=== PATIENT | male | born 1975 | race Caucasian/White ===

== ENCOUNTER 2021-11-16 04:09 | Inpatient (IN) | payer SELFPAY ==
[2021-11-16 04:22] VITALS: BP 130/67; PULSE 83; RESP 18; TEMP 36.6; O2SAT 99
[2021-11-16 04:25] VITALS: BMI 22.6
[2021-11-16 05:52] VITALS: BP 130/67; PULSE 83; RESP 18; TEMP 36.6
[2021-11-16 06:18] LABS: Basophils # 0.1 10^3/uL (0.0-0.1); Basophils % 0.7 %; Eosinophils # 0.1 10^3/uL (0.0-0.8); Eosinophils % 1.4 %; Hematocrit 39.6 % (42.0-52.0); Lymphocytes # 1.6 10^3/uL (0.8-4.8); Lymphocytes % 22.6 %; Mean Corpuscular HGB Conc 32.8 g/dL (30.0-36.0); Mean Corpuscular Hemoglobin 31.9 pg (28.0-34.0); Mean Corpuscular Volume 97.3 fl (80-94); Mean Platelet Volume 9.5 fL (7.4-10.4); Monocytes # 1.2 10^3/uL (0.2-0.9); Monocytes % 16.6 %; Neutrophils # 4.09 10^3/uL (1.8-7.7); Neutrophils % 58.3 %; Nucleated Red Blood Cells % 0 %; Platelet Count 296 10^3/cmm (130-400); Red Blood Count 4.07 10^6/uL (4.1-5.3); Red Cell Distribution Width 13.2 % (12.1-15.1)
[2021-11-16 06:29] LABS: Alanine Aminotransferase 40 U/L (0-41); Albumin Level 3.5 g/dL (3.5-5.2); Alkaline Phosphatase 72 IU/L (40-130); Anion Gap 13.3 (5-19); Aspartate Amino Transferase 59 U/L (0-40); Blood Urea Nitrogen 9 mg/dL (6-20); Carbon Dioxide 27 mmol/L (22-29); Chloride 106 mmol/L (98-107); Creatinine Clr Calc Pharmacy 132.9437; Globulin 1.7 g/dL (1.3-4.6); Glomerular Filtration Rate 120.4 mL/min (90-130); Glucose 106 mg/dL (65-115); Osmolality Calculated 295 mOsm/kg (285-295); Potassium 3.3 mmol/L (3.5-5.1); Sodium 143 mmol/L (136-145); Total Bilirubin 0.5 mg/dL (0.15-1.2); Total Protein 5.2 g/dL (6.6-8.7)
[2021-11-16] MEDS: thiamine 100 mg Tablet PO (08:38)
[2021-11-16] MEDS: multivitamin therapeutic Tablet 1 TAB PO (08:38)
[2021-11-16] MEDS: folic acid 1 mg Tablet PO (08:38)
[2021-11-16] MEDS: benztropine 1 mg Tablet PO (08:38)
[2021-11-16] MEDS: neomycin-poly-bacitracin oint 28 gm 1 APPLIC TOPICAL ×2 (08:40→20:22)
[2021-11-16] MEDS: potassium chloride ER 20 mEq Tablet 40 MEQ PO (08:40)
[2021-11-16] MEDS: cephALEXin 500 mg Capsule PO ×3 (08:40→20:23)
--- NOTE | 2021-11-16 10:44 | W.PM.NPUH&PS ---
Providers/Chief Complaint Admitting Physician: Kaushik Bellamy MD Chief Complaint: hyponatremia, Hypo kalemis, Sepsis with multi orga HPI NPU History of Present Illness Justus Maria is a 46 year old male who was admitted through the emergency department from [facility] with the following report: 46-year-old white male who was seen here in the emergency department on the evening of October 14. I was the treating ER physician for this gentleman who had acute psychosis likely secondary to methamphetamine use. He was markedly agitated and combative and required sedation. He received 250 mg of IM ketamine followed by 10 mg of IM Geodon and later 2 mg of IV Ativan. He was positive for methamphetamine and THC. He was admitted to the hospitalist service last night. Around 7 AM today he woke up and being alert he decided to leave [place]. His father arrived to pick him up, they left the hospital and allegedly had a confrontation after leaving the emergency department. Patient then left the vicinity and is now brought in by law enforcement. Urinalysis was positive for amphetamines, methamphetamines and THC. There is an affidavit on the chart filled out by his father: Javier is acting irrationally, displaying paranoid behavior and completely delusional. He feels his life is in danger because he thinks he has knowledge of conspiracy involving pornography. He told me that the [employer] had recently come to our house and have installed antenna and other wiring devices to hear his thoughts and to transmit pornography over the airways. He believes that [place] has been constructed under our house to hide his 's (who does not live with him) so she can be raped and tortured. He hears voices in her house that did not exist and believes that pornography is being displayed on the side of buildings in her neighborhood and that everyone in the neighborhood and that his work is involved. 2 nights ago, he roomed the entire neighborhood looking for his . He said that he could hear her screaming for him to help her. Yesterday morning as soon as he was received from the hospital he did not display any of the actual thoughts. As soon as they got into the truck he stated once again displaying all of these distorted thoughts that he needed to get home and take some sort of vigilante action to save his life. He believes that the police intentionally let the bad guys get away and that his is still held captive which is completely false. Justus refused to go back into the hospital when I told him he still needed help. He jumped out of the truck running away. He told me that as soon as he got out of the truck that he thinks I am somewhat involved in the conspiracies that are going on inside his head. He is refusing any help and is now missing. He was admitted to the neuropsychiatry unit for definitive treatment of these issues. He denies any prior psychiatric history or hospitalizations. He said that his kicked him out of the house and has not let him see the children since February of last year. He was also fired from his job last February. He said that they decided to go in a different direction. He said that they were driving back from the [facility] and were having an argument and he said that he might as well run the car off the road and kill them all. He said that March he was having trouble from his older son and said that he might whoop his ass . She has evidently used these statements as reasons why he should not be able to see the children. He has a father since February. He says that both his and his father neighborhoods that are controlled by [employer]. He was told that I had not heard of Wickets but had heard of Wiccans. He said that might be the same thing. He said that he has known for a long time that his is involved with them and they had many videos of her having sex with other wickets. He said that the [employer] has come into his house and wired things so that things can be monitored. He said that all of the houses in the neighborhood are connected by tunnels and that they have tubes in them so that sounds could be pumped into the different rooms. He has tried to show these things to his father that he will not look at them. He has a DVD that shows his having sex with another woman but they have changed the face of what looks like somebody else. His father also refuses to look at that. Since he lost his job in February he has been working for [employer]. He says that his boss is involved in this [employer] ring and his boss and his friend have been having sex with his . He also says that he was given some articles from some famous treasure to secure but told somebody where they were and they were stolen and now he is in trouble for that. He does admit to using methamphetamine and marijuana recently. The last time was yesterday morning the day before. He said yesterday is a little cloudy for him. He says that he has believed these things were a long time and he believes are not going to go away. PAST PSYCHIATRIC HISTORY As above SOCIAL HISTORY As above Meds NPU Home Medications Medication Instructions Recorded Confirmed Last Taken Type No Known Home Medications 11/16/21 11/16/21 Unknown History Allergies Allergy/AdvReac Type Severity Reaction Status Date / Time aspirin Allergy Unknown Verified 11/16/21 04:29 diphenhydramine Allergy Unknown Verified 11/16/21 04:29 [From Benadryl] Mental Status Exam MSE Comments: This is a 46-year-old appropriate weight male who appears his stated age and is somewhat stressed. He is dressed in hospital scrubs and was generally cooperative with the evaluation. psychomotor activity significantly increased. He is restless.. Speech is at a regular rate and rhythm, normal volume, good articulation, not pressured. Alert, oriented X3 Attention and concentration appear to be fairly good. Memory is intact Mood is anxious. Affect is moderately dysphoric. Thought process is logical and goal-directed. Thought content: Denies auditory and visual hallucinations. He has many delusional ideas about things that are going on. no current suicidal ideation, and no homicidal ideation. Fund of knowledge is very distorted. Insight and judgment appear to be poor. Impulse control is poor. Vitals/I&O/Wt Last Vital Signs Temp 97.8 F 11/16/21 05:52 Pulse 83 11/16/21 05:52 Resp 18 11/16/21 05:52 BP 130/67 11/16/21 05:52 Pulse Ox 99 11/16/21 04:22 Weight last 48 hrs Weight 72.575 kg Data NPU : 11/16/21 05:53 11/16/21 05:53 A&P Assessment and plan (1) Psychosis: Status: Acute Qualifiers: Psychosis type: brief psychotic disorder Qualified Code(s): F23 - Brief psychotic disorder (2) Methamphetamine abuse: Status: Acute (3) Cannabis abuse: Status: Acute Additional A&P Information This is a 46-year-old male who denies prior admissions or psychiatric treatment who appears to be psychotic induced by methamphetamine. Plan: 1. We will observe on only as needed medications at this time. 2. Continue every 15 minute checks for safety. 3. Encourage individual, group and milieu therapies. 4. Encourage sober living treatment after discharge at the highest level of care to which he is willing to commit. 5. We will monitor for safety for himself in the community prior to discharge. Involuntary Hold Information 96 Hour Hold: 96 Hour Involuntary Admission: Yes Attestations NPU Medical Necessity Statement*: Inpatient hospitalization is medically necessary and the clinically appropriate intervention at this time. We will initiate medications and make changes as indicated. He will be in the hospital for over 2 midnights. Likely length of stay 4-6 days Coding Level of Care Code Acute Storehouse Clerk for Kasey Key 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
[2021-11-16 14:00] VITALS: BP 130/67; PULSE 83; RESP 18; TEMP 36.6
[2021-11-16 19:52] VITALS: RESP 17
[2021-11-16] MEDS: hyDROXYzine 25 mg Capsule 50 MG PO (20:23)
[2021-11-16] MEDS: trazodone 50 mg Tablet PO (20:24)
[2021-11-17 05:40] VITALS: BP 122/67; PULSE 59; RESP 17; TEMP 36.7; O2SAT 99
--- NOTE | 2021-11-17 10:27 | P.NPUPN_ITS ---
Subjective NPU Subjective: Interval history: He continues to be very paranoid. He told the nurse I know who you are. he has been pacing and angry this morning. He is yelling at times. He was looking for the emergency exit. He has refused all medications. Mental Status Exam MSE Comments: This is a 46-year-old appropriate weight male who appears his stated age and is somewhat stressed. He is dressed in hospital scrubs and was generally cooperative with the evaluation. psychomotor activity significantly increased. He is restless.. Speech is at a regular rate and rhythm, normal volume, good articulation, not pressured. Alert, oriented X3 Attention and concentration appear to be fairly good. Memory is intact Mood is angry and anxious. Affect is moderately dysphoric. Thought process is logical and goal-directed. Thought content: Denies auditory and visual hallucinations. He has many delusional ideas about things that are going on. He was too angry to have a discussion today. No current suicidal ideation, and no homicidal ideation. Fund of knowledge is very distorted. Insight and judgment appear to be poor. Impulse control is poor. Cognition: Patient Appearance: Appropriate Ability to Follow Directions: Good Patient Orientation (long list): Person, Place, Time, Name, Age and Birthday Comprehension Ability: No Impairment Hallucination Type: None Delusion Description: Not Present Thought Process: Appropriate Affect: Affect Description: Guarded and Labile Behavior: Patient Behavior: Aggressive, Hostile, Irritable, Negative, R esistive to Care, Uncooperative and Withdrawn Speech Pattern: Clear and Includes Profanity Vitals/I&O/Wt Last Vital Signs Temp 98.1 F 11/17/21 05:40 Pulse 59 L 11/17/21 05:40 Resp 17 11/17/21 05:40 BP 122/67 11/17/21 05:40 Pulse Ox 99 11/17/21 05:40 Weight last 48 hrs Weight 72.575 kg Data NPU : 11/16/21 05:53 11/16/21 05:53 A&P Assessment and plan (1) Psychosis: Status: Acute Qualifiers: Psychosis type: brief psychotic disorder Qualified Code(s): F23 - Brief psychotic disorder (2) Methamphetamine abuse: Status: Acute (3) Cannabis abuse: Status: Acute Additional A&P Information This is a 46-year-old male who denies prior admissions or psychiatric treatment who appears to be psychotic induced by methamphetamine. Plan: 1. We will observe on only as needed medications at this time. He has refused all medications thus far. 2. Continue every 15 minute checks for safety. 3. Encourage individual, group and milieu therapies. 4. Encourage sober living treatment after discharge at the highest level of care to which he is willing to commit. 5. We will monitor for safety for himself in the community prior to discharge. Involuntary Hold Information 96 Hour Hold: 96 Hour Involuntary Admission: Yes Attestations NPU Medical Necessity Statement*: Inpatient hospitalization is medically necessary and the clinically appropriate intervention at this time. We will initiate medications and make changes as indicated. Coding Level of Care Code Acute Escrow Officer for Kasey Fwd 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
--- NOTE | 2021-11-17 11:24 | PC.NURSE ---
Patient remains angry, paranoid, and resistive to care. Attended part of group before leaving [facility]. Currently on phone with father. Did tell father on phone that when he is discharged that he will kill him. Staff will continue to monitor.
[2021-11-17] MEDS: LORazepam 2 mg Tablet PO (11:49)
[2021-11-17] MEDS: diphenhydrAMINE 50 mg Capsule PO (11:49)
[2021-11-17] MEDS: haloperidol 5 mg Tablet PO (11:50)
[2021-11-17 14:00] VITALS: RESP 16
[2021-11-17] MEDS: hyDROXYzine 25 mg Capsule 50 MG PO (20:42)
[2021-11-17] MEDS: trazodone 50 mg Tablet PO (20:42)
[2021-11-17] MEDS: cephALEXin 500 mg Capsule PO (20:42)
[2021-11-17 21:10] VITALS: RESP 16
--- NOTE | 2021-11-18 01:02 | PC.NURSE ---
PRN administration Patient c/o restlessness and not sleeping very well. Requested PRN trazodone and hydrxyzine, given as ordered with noted effectiveness.
[2021-11-18 06:00] VITALS: BP 111/73; PULSE 67; RESP 20; TEMP 36.6; O2SAT 98
--- NOTE | 2021-11-18 08:54 | P.NPUPN_ITS ---
Subjective NPU Subjective: Interval history: He said that he slept well. He is much calmer today. He still believes that all the things yesterday that he said were true. He thinks that some of the staff here are also [place]. He says that he recognizes them from an apartment complex where he and his used to live. He did not know about the wickettes at that time but thinks that they must have been involved. He had a very belligerent conversation with his father on the phone yesterday. He did except some medication when he was extremely agitated yesterday. He slept after that for some time. He took trazodone and Vistaril to help him sleep last night. He said that he thought that they might give him an injection if he refused what they offered. He was told that he did not need to take a sleeping pill that he did not want to. He says that he probably would have had difficulty because he slept so much during the day yesterday. Mental Status Exam MSE Comments: A 46-year-old male of about the stated age who is in no acute distress. He was found in his bedroom walking around. He is in hospital scrubs with several days' growth of rogers. He is relatively pleasant and cooperative with evaluation today. psychomotor activity is normal. Speech is at a regular rate and rhythm, normal volume, good articulation, not pressured. Alert, oriented X3 Attention and concentration seemed fairly good. Memory is intact Mood frustrated at losing his freedom. Affect is moderately dysphoric. Thought process is logical and goal-directed. Thought content: Denies auditory and visual hallucinations. No delusions or paranoia are noted. No current suicidal ideation, and no homicidal ideation. Fund of knowledge is average. Insight and judgment appear to be very poor. Impulse control is poor. Cognition: Patient Appearance: Appropriate Ability to Follow Directions: Good Patient Orientation (long list): Person, Place, Time, Name, Age and Birthday Comprehension Ability: No Impairment Hallucination Type: None Delusion Description: Not Present Thought Process: Appropriate Affect: Affect Description: Appropriate Behavior: Patient Behavior: Appropriate Speech Pattern: Appropriate Vitals/I&O/Wt Last Vital Signs Temp 98 F 11/18/21 06:00 Pulse 67 11/18/21 06:00 Resp 20 H 11/18/21 06:00 BP 111/73 01/19/22 06:00 Pulse Ox 98 11/18/21 06:00 Data NPU : 11/16/21 05:53 11/16/21 05:53 A&P Assessment and plan (1) Psychosis: Status: Acute Qualifiers: Psychosis type: brief psychotic disorder Qualified Code(s): F23 - Brief psychotic disorder (2) Methamphetamine abuse: Status: Acute (3) Cannabis abuse: Status: Acute Additional A&P Information Plan: 1. Continue to observe only on as needed medications. 2. Continue every 15 minute checks for safety. 3. Encourage individual, group and milieu therapies. 4. Encourage sober living treatment after discharge at the highest level of care to which he is willing to commit. 5. We will monitor for safety for himself in the community prior to discharge. Involuntary Hold Information 96 Hour Hold: 96 Hour Involuntary Admission: Yes Attestations NPU Medical Necessity Statement*: Inpatient hospitalization is medically necessary and the clinically appropriate intervention at this time. We will initiate medications and make changes as indicated. Coding Level of Care Code Acute Commercial Maintenance Technician for Kasey Key 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
[2021-11-18] MEDS: haloperidol 5 mg Tablet PO (09:29)
[2021-11-18] MEDS: LORazepam 2 mg Tablet PO (09:29)
[2021-11-18] MEDS: hyDROXYzine 25 mg Capsule 50 MG PO ×2 (09:29→20:52)
[2021-11-18] MEDS: cephALEXin 500 mg Capsule PO ×3 (09:43→20:52)
[2021-11-18] MEDS: neomycin-poly-bacitracin oint 28 gm 1 APPLIC TOPICAL ×2 (09:47→17:50)
[2021-11-18] MEDS: folic acid 1 mg Tablet PO (09:47)
[2021-11-18] MEDS: multivitamin therapeutic Tablet 1 TAB PO (09:47)
[2021-11-18] MEDS: potassium chloride ER 20 mEq Tablet 40 MEQ PO (09:48)
[2021-11-18] MEDS: thiamine 100 mg Tablet PO (09:48)
[2021-11-18 14:00] VITALS: BP 174/80; PULSE 83; RESP 18; TEMP 36.6; O2SAT 97
[2021-11-18 21:43] VITALS: BP 106/63; PULSE 60; RESP 16; TEMP 36.4; O2SAT 98
--- NOTE | 2021-11-19 01:44 | PC.NURSE ---
PRN Administration Patient c/o anxiety and restlessness. Given hydroxyzine PO as ordered with HS medications with noted effectiveness.
[2021-11-19 06:00] VITALS: RESP 18
[2021-11-19] MEDS: potassium chloride ER 20 mEq Tablet 40 MEQ PO (10:21)
[2021-11-19] MEDS: cephALEXin 500 mg Capsule PO ×3 (10:22→20:28)
[2021-11-19] MEDS: thiamine 100 mg Tablet PO (10:22)
[2021-11-19] MEDS: folic acid 1 mg Tablet PO (10:22)
[2021-11-19] MEDS: multivitamin therapeutic Tablet 1 TAB PO (10:23)
--- NOTE | 2021-11-19 12:27 | P.NPUPN_ITS ---
Subjective NPU Subjective: Interval history: He continues to have anger outbursts periodically. Yesterday he required medication again. Today he evidently settled down without medication. He asked if there is any way he could be released tomorrow and was told that he needs to get his behavior under control. He agreed that he had been out of control and he understood that he needed to do a better job. He said that he would try. We did not discuss his delusions today. Mental Status Exam MSE Comments: A 46-year-old male of about the stated age who is in no acute distress. He was found in his bedroom walking around. He is in hospital scrubs with several days' growth of rogers. He is relatively pleasant and cooperative with evaluation today. psychomotor activity is normal. Speech is at a regular rate and rhythm, normal volume, good articulation, not pressured. Alert, oriented X3 Attention and concentration seemed fairly good. Memory is intact Mood frustrated at losing his freedom. Affect is moderately dysphoric. Thought process is logical and goal-directed. Thought content: Denies auditory and visual hallucinations. delusions and paranoia were not discussed. No current suicidal ideation, and no homicidal ideation. Fund of knowledge is average. Insight and judgment appear to be very poor. Impulse control is poor. Cognition: Patient Appearance: Appropriate Ability to Follow Directions: Good Patient Orientation (long list): Person, Place, Time, Name, Age and Birthday Comprehension Ability: No Impairment Hallucination Type: None Delusion Description: Not Present Thought Process: Appropriate Affect: Affect Description: Appropriate Behavior: Patient Behavior: Appropriate Speech Pattern: Appropriate Vitals/I&O/Wt Last Vital Signs Temp 97.6 F 11/18/21 21:43 Pulse 60 11/18/21 21:43 Resp 18 11/19/21 06:00 BP 106/63 11/18/21 21:43 Pulse Ox 98 11/18/21 21:43 Data NPU : 11/16/21 05:53 11/16/21 05:53 A&P Assessment and plan (1) Psychosis: Status: Acute Qualifiers: Psychosis type: brief psychotic disorder Qualified Code(s): F23 - Brief psychotic disorder (2) Methamphetamine abuse: Status: Acute (3) Cannabis abuse: Status: Acute Additional A&P Information Plan: 1. Continue to observe only on as needed medications. 2. Continue every 15 minute checks for safety. 3. Encourage individual, group and milieu therapies. 4. Encourage sober living treatment after discharge at the highest level of care to which he is willing to commit. 5. We will monitor for safety for himself in the community prior to discharge. Involuntary Hold Information 96 Hour Hold: 96 Hour Involuntary Admission: Yes Attestations NPU Medical Necessity Statement*: Inpatient hospitalization is medically necessary and the clinically appropriate intervention at this time. We will initiate medications and make changes as indicated. Coding Level of Care Code Acute Risk Control Analyst for Kasey Fwd 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
[2021-11-19] MEDS: nicotine 2 mg Gum BUCCAL (12:37)
[2021-11-19 14:00] VITALS: BP 106/67; PULSE 62; RESP 17; TEMP 36.6; O2SAT 100
[2021-11-19] MEDS: OLANZapine 5 mg ODT PO (18:11)
[2021-11-19] MEDS: hyDROXYzine 25 mg Capsule 50 MG PO (18:11)
[2021-11-19 20:36] VITALS: BP 114/79; PULSE 69; RESP 17; TEMP 36.5; O2SAT 97
[2021-11-20 06:00] VITALS: BP 114/79; PULSE 69; RESP 17; TEMP 36.5; O2SAT 97
[2021-11-20 06:49] VITALS: BP 124/78; PULSE 56; RESP 18; TEMP 36.8; O2SAT 100
[2021-11-20] MEDS: potassium chloride ER 20 mEq Tablet 40 MEQ PO (10:05)
[2021-11-20] MEDS: thiamine 100 mg Tablet PO (10:06)
[2021-11-20] MEDS: multivitamin therapeutic Tablet 1 TAB PO (10:09)
[2021-11-20] MEDS: folic acid 1 mg Tablet PO (10:09)
[2021-11-20] MEDS: cephALEXin 500 mg Capsule PO ×3 (10:09→20:25)
[2021-11-20] MEDS: neomycin-poly-bacitracin oint 28 gm 1 APPLIC TOPICAL (10:26)
--- NOTE | 2021-11-20 10:35 | P.NPUPN_ITS ---
Subjective NPU Subjective: Interval history: He says that he has started to realize that some of the things that he has been thinking are crazy. He was worried that maybe he is schizophrenic. He also understands that it is probably the methamphetamine. Previously he had been adamant that he has been thinking these things about his and the weekends for a long time. Now he realizes that he must have not started thinking these things until he started using methamphetamine about [place]. He says that Thanksgiving was hard on him. They told him to buy [place] presents for his children and that when he would be able to see them at [place]. As the Time Approaches He Realizes that was probably not going to happen because arrangements have to be made for supervised visitation but were not made. He talked to his bilingual office assistant just before [place] and was told that he would not be able to see his children. He started using methamphetamine immediately after that. 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 He certainly would not have continued working there if he believed that at the time. Mental Status Exam MSE Comments: A 46-year-old male of about the stated age who is in no acute distress. He was found in his bedroom just getting back into bed. He is in hospital scrubs with several days' growth of rogers. He is pleasant and cooperative with evaluation today. psychomotor activity is normal. Speech is at a regular rate and rhythm, normal volume, good articulation, not pressured. Alert, oriented X3 Attention and concentration seemed fairly good. Memory is intact Mood worried. Affect is mildly dysphoric. Thought process is logical and goal-directed. Thought content: Denies auditory and visual hallucinations. He seems to be realizing that the delusions about his 's and the sex ring are not true.. No current suicidal ideation, and no homicidal ideation. Fund of knowledge is average. Insight and judgment appear to be improving. Impulse control is improving. Cognition: Patient Appearance: Appropriate Ability to Follow Directions: Good Patient Orientation (long list): Person, Place, Time, Name, Age and Birthday Comprehension Ability: No Impairment Hallucination Type: None Delusion Description: Not Present Thought Process: Appropriate Affect: Affect Description: Appropriate and Calm Behavior: Patient Behavior: Appropriate and Cooperative Speech Pattern: Appropriate and Clear Vitals/I&O/Wt Last Vital Signs Temp 98.2 F 11/20/21 06:49 Pulse 56 L 11/20/21 06:49 Resp 18 11/20/21 06:49 BP 124/78 11/20/21 06:49 Pulse Ox 100 11/20/21 06:49 Data NPU : 11/16/21 05:53 11/16/21 05:53 A&P Assessment and plan (1) Psychosis: Status: Acute Qualifiers: Psychosis type: brief psychotic disorder Qualified Code(s): F23 - Brief psychotic disorder (2) Methamphetamine abuse: Status: Acute (3) Cannabis abuse: Status: Acute Additional A&P Information Plan: 1. Continue to observe only on as needed medications. 2. Continue every 15 minute checks for safety. 3. Encourage individual, group and milieu therapies. 4. Encourage sober living treatment after discharge at the highest level of car e to which he is willing to commit. 5. We will monitor for safety for himself in the community prior to discharge. Involuntary Hold Information 96 Hour Hold: 96 Hour Involuntary Admission: Yes Attestations NPU Medical Necessity Statement*: Inpatient hospitalization is medically necessary and the clinically appropriate intervention at this time. We will initiate medications and make changes as indicated. Coding Level of Care Code Acute Networks Computer Consultant for Kasey Key 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
[2021-11-20] MEDS: acetaminophen 325 mg Tablet 650 MG PO ×2 (11:56→20:25)
[2021-11-20] MEDS: hyDROXYzine 25 mg Capsule 50 MG PO ×2 (13:36→20:25)
[2021-11-20] MEDS: OLANZapine 5 mg ODT PO (13:36)
[2021-11-20 14:00] VITALS: BP 120/80; PULSE 86; RESP 16; TEMP 36.8; O2SAT 100
[2021-11-20 20:32] VITALS: BP 122/77; PULSE 81; RESP 18; O2SAT 100
--- NOTE | 2021-11-21 03:04 | PC.NURSE ---
PRN administration Patient c/o restlessness and anxiety and back pain. Given PRN hydroxyzine and tylenol PO with noted effectiveness.
[2021-11-21 06:00] VITALS: BP 106/69; PULSE 76; RESP 18; TEMP 36.6; O2SAT 98
--- NOTE | 2021-11-21 08:14 | P.NPUPN_ITS ---
Subjective NPU Subjective: Interval history: He had a fairly good day yesterday. He did take a Zyprexa Zydis for anxiety around 5 PM. Continues to understand that his thinking was really crazy and that it was because of the methamphetamine. He also started talking about not eating and not drinking well but was redirected to the methamphetamine. He is also hoping to stop smoking. He read some things and the pamphlet about the importance of stopping smoking and what it does to her body. He was offered some assistance with medication but does not feel that he needs at this time. He was told that his father told the social science manager that he had been having difficulty with crazy thinking for 20 years. He has had some doses of Zyprexa Zydis which could have calmed him down but it is unlikely that if he has schizophrenia he would have been so much better so quickly. Mental Status Exam MSE Comments: A 46-year-old male of about the stated age who is in no acute distress. He was found in the day room at 8 AM. He is in hospital scrubs with several days' growth of rogers. He is pleasant and cooperative with evaluation today. psychomotor activity is normal. Speech is at a regular rate and rhythm, normal volume, good articulation, not pressured. Alert, oriented X3 Attention and concentration seemed fairly good. Memory is intact Mood good but anxious to leave. Affect is mildly dysphoric. Thought process is logical and goal-directed. Thought content: Denies auditory and visual hallucinations. He realizes that the delusions about his 's and the sex ring are not true.. No current suicidal ideation, and no homicidal ideation. Fund of knowledge is average. Insight and judgment appear to be improving. Impulse control is improving. Cognition: Patient Appearance: Appropriate Ability to Follow Directions: Good Patient Orientation (long list): Person, Place, Time, Name, Age and Birthday Comprehension Ability: No Impairment Hallucination Type: None Delusion Description: Not Present Thought Process: Appropriate Affect: Affect Description: Appropriate Behavior: Patient Behavior: Appropriate Speech Pattern: Appropriate Vitals/I&O/Wt Last Vital Signs Temp 97.8 F 11/21/21 06:00 Pulse 76 11/21/21 06:00 Resp 18 11/21/21 06:00 BP 106/69 11/21/21 06:00 Pulse Ox 98 11/21/21 06:00 Data NPU : 11/16/21 05:53 11/16/21 05:53 A&P Assessment and plan (1) Psychosis: Status: Acute Qualifiers: Psychosis type: brief psychotic disorder Qualified Code(s): F23 - Brief psychotic disorder (2) Methamphetamine abuse: Status: Acute (3) Cannabis abuse: Status: Acute Additional A&P Information Plan: 1. Continue to observe only on as needed medications. stop Zyprexa Zydis. 2. Continue every 15 minute checks for safety. 3. Encourage individual, group and milieu therapies. 4. Encourage sober living treatment after discharge at the highest level of care to which he is willing to commit. 5. We will monitor for safety for himself in the community prior to discharge. Involuntary Hold Information 96 Hour Hold: 96 Hour Involuntary Admission: Yes Attestations NPU Medical Necessity Statement*: Inpatient hospitalization is medically necessary and the clinically appropriate intervention at this time. We will initiate medications and make changes as indicated. 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
[2021-11-21] MEDS: multivitamin therapeutic Tablet 1 TAB PO (08:33)
[2021-11-21] MEDS: potassium chloride ER 20 mEq Tablet 40 MEQ PO (08:33)
[2021-11-21] MEDS: thiamine 100 mg Tablet PO (08:33)
[2021-11-21] MEDS: cephALEXin 500 mg Capsule PO ×2 (08:33→17:18)
[2021-11-21] MEDS: folic acid 1 mg Tablet PO (08:34)
[2021-11-21] MEDS: nicotine 2 mg Gum BUCCAL ×2 (09:25→18:54)
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
[2021-11-21] MEDS: silver sulfadiazine cream 1% 50 gm 1 APPLIC TOPICAL (12:46)
[2021-11-21 14:00] VITALS: BP 114/72; PULSE 75; RESP 17; O2SAT 100
[2021-11-21] MEDS: neomycin-poly-bacitracin oint 28 gm 1 APPLIC TOPICAL (17:23)
[2021-11-21 20:17] VITALS: BP 123/87; PULSE 88; RESP 17; O2SAT 99
[2021-11-22 05:48] VITALS: BP 123/87; PULSE 88; RESP 17; TEMP 36.6; O2SAT 99; BMI 22.6
[2021-11-22 07:02] VITALS: BP 112/68; PULSE 60; RESP 20; TEMP 36.8; O2SAT 98
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
[2021-11-22] MEDS: potassium chloride ER 20 mEq Tablet 40 MEQ PO (08:12)
[2021-11-22] MEDS: thiamine 100 mg Tablet PO (08:12)
[2021-11-22] MEDS: folic acid 1 mg Tablet PO (08:13)
[2021-11-22] MEDS: cephALEXin 500 mg Capsule PO (08:13)
[2021-11-22] MEDS: multivitamin therapeutic Tablet 1 TAB PO (08:13)
[2021-11-22 08:56] VITALS: BP 112/68; PULSE 60; RESP 20; TEMP 36.8; O2SAT 98
[2021-11-22] MEDS: silver sulfadiazine cream 1% 50 gm 1 APPLIC TOPICAL (09:10)
--- NOTE | 2021-11-22 10:16 | PC.NURSE ---
CBC & CMP CANCELLED DUE TO PATIENT BEING DISCHARGED.
[2021-11-22] MEDS: neomycin-poly-bacitracin oint 28 gm 1 APPLIC TOPICAL (10:25)
== END 2021-11-22 10:42 | disposition home or self-care (01) | DRG 897 ==
PROVIDERS: Admitting Provider Psychiatry & Neurology Psychiatry; Visit Provider Psychiatry & Neurology Psychiatry
DX: F15.159 Other stimulant abuse with stimulant-induced psychotic disorder, unspecified (principal); F15.10 Other stimulant abuse, uncomplicated; F12.10 Cannabis abuse, uncomplicated; T24.001A Burn of unspecified degree of unspecified site of right lower limb, except ankle and foot, initial encounter; X19.XXXA Contact with other heat and hot substances, initial encounter
CPT/HCPCS: 36415; 80053; 85025; 97150; 97165; Q0163